=== PATIENT | female | born 1975 | race Hispanic/Latino ===

== ENCOUNTER 2018-05-23 18:11 | Inpatient (IN) | payer OTHER ==
[~2018-05-23] VITALS: Ht 152.4 cm; Wt 65.2 kg
[2018-05-23] MEDS ORDERED: LABETALOL HCL 5 MG/ML 20ML VIAL IV ONE (18:34)
[2018-05-23] MEDS ORDERED: ONDANSETRON HCL 4 MG/2 ML VIAL ONE (18:34)
[2018-05-23] MEDS ORDERED: SODIUM CHLORIDE 0.9% 500ML 500 ML IV ONE (18:34)
[2018-05-23] MEDS ORDERED: DICYCLOMINE HCL 10 MG/ML 2ML AMP IM ONE (18:34)
[2018-05-23 18:51] LABS: BASOPHILS % (AUTO) 0.7 % (0.0-5.0); EOSINOPHILS % (AUTO) 0.1 % (0.0-8.0); HEMATOCRIT 23.7 % (36-48); LYMPHOCYTES % (AUTO) 12.9 % (21.0-51.0); MEAN CORPUSCULAR HEMOGLOBIN 20.3 pg (27.0-33.0); MEAN CORPUSCULAR VOLUME 67.6 fL (79-99); MONOCYTES % (AUTO) 5.8 % (3.0-13.0); NEUTROPHILS % (AUTO) 80.5 % (40.0-77.0); NUCLEATED RED BLOOD CELLS 0.1 % (0.0-0.19); PLATELET COUNT (AUTO) 341 K/uL (130-400); RED BLOOD CELL COUNT(AUTO) 3.51 MIL/uL (4.00-5.50); RED CELL DISTRIBUTION WIDTH 23.3 % (11.0-15.5); WHITE BLOOD COUNT (AUTO) 8.9 K/uL (4.8-10.8)
[2018-05-23 19:03] LABS: CREATININE 2.7 mg/dL (0.5-1.5); POTASSIUM 3.2 mmol/L (3.5-5.1)
[2018-05-23 19:07] LABS: ALBUMIN 3.4 g/dL (3.5-5.0); BILIRUBIN,TOTAL 0.2 mg/dL (0.2-1.0); TOTAL PROTEIN, SERUM 7.5 g/dL (6.0-8.3)
[2018-05-23 19:19] LABS: INR 0.89 (0.85-1.15); PARTIAL THROMBOPLASTIN TIME 24.5 SEC (26.3-35.5); PROTHROMBIN TIME 9.4 SEC (9.6-11.6)
[2018-05-23 19:43] LABS: APPEARANCE,URINE Clear (CLEAR); BILIRUBIN,URINE Negative (NEGATIVE); COLOR,URINE Yellow (YELLOW); GLUCOSE, URINE (UA) Negative (NEGATIVE); KETONES,URINE Negative (NEGATIVE); LEUKOCYTE ESTERASE ,URINE Negative (NEGATIVE); NITRATE,URINE Negative (NEGATIVE); OCCULT BLOOD,URINE Moderate (NEGATIVE); PROTEIN,URINE 300 (NEGATIVE); UROBILINOGEN,URINE 0.2 mg/dL (0.2-1.0)
[2018-05-23 19:49] LABS: HCG,QUAL RESULT NEGATIVE (NEGATIVE)
[2018-05-23 20:00] LABS: RBC,URINE 0-1 /HPF (0-1)
[2018-05-23] MEDS ORDERED: HYDRALAZINE HCL 20 MG/ML VIAL ONE (20:00)
[2018-05-23 20:01] LABS: BACTERIA,URINE Few /HPF (None Seen); WBC,URINE 0-1 /HPF (0-1)
[2018-05-23 21:21] LABS: RETICULOCYTE % (AUTO) 2.95 % (0.42-2.23)
[2018-05-23 21:37] LABS: % IRON SATURATION 4.5 % (22-44); FERRITIN 47 ng/mL (15-150); IRON, SERUM 16 mcg/dL (50-170); TOTAL IRON BINDING CAPACITY 354 mcg/dL (250-450)
[2018-05-23] MEDS ORDERED: LACTATED RINGERS 1000ML 1,000 ML IV ONE (22:49)
[2018-05-23] MEDS ORDERED: CLONIDINE HCL 0.1 MG TABLET ONE (22:49)
[2018-05-23] MEDS ORDERED: FAMOTIDINE/PF 20 MG/2 ML VIAL IV ONE (22:54)
[2018-05-23 23:15] VITALS: BP 184/98
[2018-05-23] MEDS ORDERED: LACTATED RINGERS 1000ML 1,000 ML IV SCH (23:45)
[2018-05-23] MEDS ORDERED: ONDANSETRON HCL MDV 20ML 2 MG/ML VIAL IVP PRN (23:45)
[2018-05-24 00:33] VITALS: BP 134/71
[2018-05-24 04:12] VITALS: BP 145/88
[2018-05-24 04:53] LABS: BASOPHILS % (AUTO) 1.4 % (0.0-5.0); EOSINOPHILS % (AUTO) 2.2 % (0.0-8.0); LYMPHOCYTES % (AUTO) 27.5 % (21.0-51.0); MEAN CORPUSCULAR HEMOGLOBIN 20.3 pg (27.0-33.0); MEAN CORPUSCULAR HGB CONC 30.2 g/dL (32.0-36.0); MEAN CORPUSCULAR VOLUME 67.3 fL (79-99); MONOCYTES % (AUTO) 12.3 % (3.0-13.0); NEUTROPHILS % (AUTO) 56.6 % (40.0-77.0); PLATELET COUNT (AUTO) 327 K/uL (130-400); RED BLOOD CELL COUNT(AUTO) 2.98 MIL/uL (4.00-5.50); RED CELL DISTRIBUTION WIDTH 23.3 % (11.0-15.5); WHITE BLOOD COUNT (AUTO) 6.2 K/uL (4.8-10.8)
[2018-05-24 05:01] LABS: HEMATOCRIT 20.1 % (36-48)
[2018-05-24 05:16] LABS: ALBUMIN 2.7 g/dL (3.5-5.0); BILIRUBIN,TOTAL 0.3 mg/dL (0.2-1.0); CREATININE 2.4 mg/dL (0.5-1.5); POTASSIUM 3.4 mmol/L (3.5-5.1); TOTAL PROTEIN, SERUM 6.1 g/dL (6.0-8.3)
[2018-05-24] MEDS: SODIUM CHLORIDE 0.9% 1000ML 1,000 ML IV SCH ×5 (06:17→22:00)
[2018-05-24 07:30] VITALS: BP 181/93
[2018-05-24] MEDS ORDERED: SODIUM CHLORIDE 0.9% 250 ML IV ONE (08:15)
[2018-05-24] MEDS: FAMOTIDINE 20MG TAB 20 MG TAB PO SCH ×2 (08:25→21:44)
[2018-05-24] MEDS ORDERED: COMPOUND IV MISC 1 EACH IVSOLN MISC PRN (08:45)
[2018-05-24] MEDS: CLONIDINE HCL 0.1 MG TABLET PO PRN ×2 (09:00→16:16)
[2018-05-24] MEDS: IRON SUCROSE COMPLEX 100 MG in SODIUM CHLORIDE 0.9% 50 ML IV SCH (09:00)
[2018-05-24 10:20] LABS: PROTEIN,URINE RANDOM 204.4 mg/dL (0-11.9)
[2018-05-24 11:00] VITALS: BP 156/85
[2018-05-24 13:14] LABS: HEMATOCRIT 24.7 % (36-48)
[2018-05-24 16:00] VITALS: BP 194/107
[2018-05-24] MEDS ORDERED: LACTULOSE 20 GM/30 ML UDCUP PO SCH (17:15)
[2018-05-24] MEDS ORDERED: LACTULOSE 20 GM/30 ML UDCUP ONE (17:24)
[2018-05-24] MEDS ORDERED: PEG 3350/NA SULF,BICARB,CL/KCL 4000 ML SOLN PO SCH (18:00)
[2018-05-24] MEDS: METOCLOPRAMIDE 10 MG/2 ML VIAL IVP SCH (18:16)
[2018-05-24 20:00] VITALS: BP 177/103
[2018-05-24] MEDS: VERAPAMIL HCL 240 MG SRTAB PO SCH (22:00)
[2018-05-24 22:01] LABS: HEMATOCRIT 28.2 % (36-48)
[2018-05-25] VITALS (22 sets, daily range): BP systolic 131–213; BP diastolic 60–108
[2018-05-25] MEDS: SODIUM CHLORIDE 0.9% 1000ML 1,000 ML IV SCH ×3 (01:16→11:19)
[2018-05-25] MEDS: CLONIDINE HCL 0.1 MG TABLET PO PRN ×2 (04:42→08:00)
[2018-05-25 05:05] LABS: HEMATOCRIT 24.6 % (36-48); MEAN CORPUSCULAR HEMOGLOBIN 21.3 pg (27.0-33.0); MEAN CORPUSCULAR VOLUME 70.9 fL (79-99); NUCLEATED RED BLOOD CELLS 0.1 % (0.0-0.19); PLATELET COUNT (AUTO) 279 K/uL (130-400); RED BLOOD CELL COUNT(AUTO) 3.47 MIL/uL (4.00-5.50); RED CELL DISTRIBUTION WIDTH 23.4 % (11.0-15.5)
[2018-05-25 05:18] LABS: CREATININE 1.9 mg/dL (0.5-1.5); HEMOGLOBIN A1C 6.2 % (4.0-6.0); PHOSPHORUS 3.5 mg/dL (2.5-4.9); POTASSIUM 3.4 mmol/L (3.5-5.1)
[2018-05-25 05:21] LABS: EOSINOPHILS % (MANUAL) 6 % (1-6); LYMPHOCYTES % (MANUAL) 30 % (22-44); MAN.DIFF COMMENT-IMPRESSION MANUAL DIFFERENTIAL; MONOCYTES % (MANUAL) 6 % (2-9); PLATELET MORPHOLOGY COMMENT ADEQUATE; SEGMENTED NEUTROPHILS % 58 % (40-70)
[2018-05-25] MEDS: METOCLOPRAMIDE 10 MG/2 ML VIAL IVP SCH ×4 (05:48→18:00)
[2018-05-25] MEDS ORDERED: NIFEDIPINE ER 30 MG TAB PO SCH (08:15)
[2018-05-25] MEDS: HYDRALAZINE HCL 20 MG/ML VIAL IV PRN (08:37)
[2018-05-25] MEDS: IRON SUCROSE COMPLEX 100 MG in SODIUM CHLORIDE 0.9% 50 ML IV SCH (08:38)
[2018-05-25] MEDS: VERAPAMIL HCL 240 MG SRTAB PO SCH (08:46)
[2018-05-25] MEDS: FAMOTIDINE 20MG TAB 20 MG TAB PO SCH ×2 (08:47→20:25)
[2018-05-25] MEDS ORDERED: LABETALOL 20 MG/4 ML DISP.SYRIN IV PRN (13:00)
[2018-05-25] MEDS: NICARDIPINE HCL 100 MG in SODIUM CHLORIDE 0.9% 60 ML IV SCH ×2 (14:39→20:59)
[2018-05-25] MEDS: NIFEDIPINE ER 30 MG TAB PO SCH (20:54)
[2018-05-26] VITALS (30 sets, daily range): BP systolic 127–171; BP diastolic 60–92
[2018-05-26] MEDS: SODIUM CHLORIDE 0.9% 1000ML 1,000 ML IV SCH ×3 (01:03→17:19)
[2018-05-26] MEDS: HYDRALAZINE HCL 20 MG/ML VIAL IV PRN ×2 (09:00→19:28)
[2018-05-26] MEDS: NIFEDIPINE ER 30 MG TAB PO SCH ×2 (09:00→19:27)
[2018-05-26] MEDS: FAMOTIDINE 20MG TAB 20 MG TAB PO SCH ×2 (09:00→20:41)
[2018-05-26] MEDS: IRON SUCROSE COMPLEX 100 MG in SODIUM CHLORIDE 0.9% 50 ML IV SCH (10:53)
[2018-05-26] MEDS ORDERED: PROPOFOL 10 MG/ML 20ML VIAL IV ONE (13:54)
[2018-05-26] MEDS ORDERED: LIDOCAINE HCL-MPF 2% 5ML VIAL ONE (13:54)
[2018-05-26] MEDS ORDERED: FENTANYL CITRATE PF 50 MCG/1 ML 2ML VIAL ONE (13:54)
[2018-05-26 15:44] LABS: ABG BASE EXCESS -4.8 mmol/L (-2.0-3.0); ABG HCO3 17.7 mmol/L (21.0-28.0); ABG OXYGEN SATURATION 91.7 % (95.0-99.0); ABG PCO2 27 mmHg (32-45)
[2018-05-26 15:58] LABS: ABG BASE EXCESS -4.9 mmol/L (-2.0-3.0); ABG HCO3 17.7 mmol/L (21.0-28.0); ABG OXYGEN SATURATION 87.3 % (95.0-99.0); ABG PCO2 27 mmHg (32-45)
[2018-05-26] MEDS ORDERED: EPOETIN ALFA 10,000 UNIT/ML VIAL SQ SCH (16:30)
[2018-05-26] MEDS: CLONIDINE HCL 0.1 MG TABLET PO SCH ×2 (17:27)
[2018-05-26] MEDS: HYDROCORTISONE 25 MG SUPPOSITORY PR SCH (20:29)
[2018-05-26] MEDS: PANTOPRAZOLE SODIUM 40 MG TABLET.DR PO SCH (20:30)
[2018-05-27 00:06] VITALS: BP 159/86
[2018-05-27 00:59] VITALS: BP 154/76
[2018-05-27 01:59] VITALS: BP 141/73
[2018-05-27 02:59] VITALS: BP 147/76
[2018-05-27] MEDS: SODIUM CHLORIDE 0.9% 1000ML 1,000 ML IV SCH (03:53)
[2018-05-27 03:59] VITALS: BP 159/96
[2018-05-27 04:03] LABS: ABG BASE EXCESS -5.1 mmol/L (-2.0-3.0); ABG HCO3 18.6 mmol/L (21.0-28.0); ABG OXYGEN SATURATION 94.8 % (95.0-99.0); ABG PCO2 29 mmHg (32-45)
[2018-05-27 04:22] LABS: HEMATOCRIT 25.4 % (36-48); MEAN CORPUSCULAR HEMOGLOBIN 21.2 pg (27.0-33.0); MEAN CORPUSCULAR VOLUME 70.8 fL (79-99); NUCLEATED RED BLOOD CELLS 0.1 % (0.0-0.19); PLATELET COUNT (AUTO) 335 K/uL (130-400); RED BLOOD CELL COUNT(AUTO) 3.59 MIL/uL (4.00-5.50); RED CELL DISTRIBUTION WIDTH 24.9 % (11.0-15.5); WHITE BLOOD COUNT (AUTO) 7.2 K/uL (4.8-10.8)
[2018-05-27 04:32] LABS: ALBUMIN 2.7 g/dL (3.5-5.0); BILIRUBIN,TOTAL 0.4 mg/dL (0.2-1.0); CREATININE 1.9 mg/dL (0.5-1.5); POTASSIUM 3.3 mmol/L (3.5-5.1); TOTAL PROTEIN, SERUM 6.2 g/dL (6.0-8.3)
[2018-05-27 05:00] LABS: B-TYPE NATRIURETIC PEPTIDE 775 pg/mL (0-100)
[2018-05-27 05:02] LABS: BAND NEUTROPHILS % (MANUAL) 3 % (0-2); BASOPHILS % (MANUAL) 2 % (0-2); EOSINOPHILS % (MANUAL) 3 % (1-6); LYMPHOCYTES % (MANUAL) 11 % (22-44); MONOCYTES % (MANUAL) 5 % (2-9); SEGMENTED NEUTROPHILS % 76 % (40-70)
[2018-05-27 05:03] LABS: MAN.DIFF COMMENT-IMPRESSION MANUAL DIFFERENTIAL
[2018-05-27 05:55] VITALS: BP 149/72
[2018-05-27] MEDS: CLONIDINE HCL 0.1 MG TABLET PO SCH (05:55)
[2018-05-27] MEDS: HYDRALAZINE HCL 20 MG/ML VIAL IV PRN (07:42)
[2018-05-27] MEDS ORDERED: FUROSEMIDE 10 MG/ML 4ML VIAL IV SCH (08:30)
[2018-05-27] MEDS ORDERED: LIDOCAINE HCL-MPF 1% 2ML VIAL IVP PRN (08:45)
[2018-05-27] MEDS ORDERED: POTASSIUM CHLORIDE 20MEQ/100ML 100 ML IV PRN (08:45)
[2018-05-27] MEDS ORDERED: POTASSIUM CHLORIDE 20 MEQ ERTAB PO PRN (08:45)
[2018-05-27] MEDS ORDERED: POTASSIUM CHLORIDE 10% ELIXIR 20 MEQ/15 ML UDCUP PO PRN (08:45)
[2018-05-27] MEDS ORDERED: ENOXAPARIN SODIUM 60 MG/0.6 ML SQ SCH (09:00)
[2018-05-27] MEDS: NIFEDIPINE ER 30 MG TAB PO SCH (10:01)
[2018-05-27] MEDS: FAMOTIDINE 20MG TAB 20 MG TAB PO SCH (10:02)
[2018-05-27] MEDS: PANTOPRAZOLE SODIUM 40 MG TABLET.DR PO SCH (10:03)
[2018-05-27] MEDS: HYDROCORTISONE 25 MG SUPPOSITORY PR SCH (10:10)
[2018-05-27] MEDS ORDERED: LORAZEPAM 2 MG/ML 1 ML VIAL IVP SCH (13:00)
[2018-05-27] MEDS ORDERED: LORAZEPAM 2 MG/ML 1 ML VIAL ONE (13:02)
[2018-05-27] MEDS ORDERED: ALTEPLASE 100 MG VIAL IV SCH (13:24)
[2018-05-27] MEDS ORDERED: ALTEPLASE 50 MG VIAL IV SCH (13:25)
[2018-05-27] MEDS ORDERED: CLONIDINE HCL 0.2 MG TABLET PO SCH (14:00)
== END 2018-05-27 13:38 | disposition short-term general hospital (02) | DRG 683 ==
LOC: EDH 18:11 → EDHIP 18:12 → 3CH 22:45 → 2BH 05-25 12:25
PROVIDERS: ADMIT Hospitalist; ATTEND Hospitalist
PROC: 30233N1 Transfusion of Nonautologous Red Blood Cells into Peripheral Vein, Percutaneous Approach (ICD-10-PCS; principal; 2018-05-24)
PROC: 0DJD8ZZ Inspection of Lower Intestinal Tract, Via Natural or Artificial Opening Endoscopic (ICD-10-PCS; 2018-05-26)
PROC: 0DB98ZX Excision of Duodenum, Via Natural or Artificial Opening Endoscopic, Diagnostic (ICD-10-PCS; 2018-05-26)
PROC: 0DB68ZX Excision of Stomach, Via Natural or Artificial Opening Endoscopic, Diagnostic (ICD-10-PCS; 2018-05-26)
DX: N17.9 Acute kidney failure, unspecified (principal); I31.3 Pericardial effusion (noninflammatory); G81.04 Flaccid hemiplegia affecting left nondominant side; R41.4 Neurologic neglect syndrome; E44.0 Moderate protein-calorie malnutrition; I13.10 Hypertensive heart and chronic kidney disease without heart failure, with stage 1 through stage 4 chronic kidney disease, or unspecified chronic kidney disease; K29.60 Other gastritis without bleeding; K29.80 Duodenitis without bleeding; D25.9 Leiomyoma of uterus, unspecified; D50.9 Iron deficiency anemia, unspecified; D63.8 Anemia in other chronic diseases classified elsewhere; E87.6 Hypokalemia; E87.70 Fluid overload, unspecified; K64.8 Other hemorrhoids; E86.0 Dehydration; K27.9 Peptic ulcer, site unspecified, unspecified as acute or chronic, without hemorrhage or perforation; K21.9 Gastro-esophageal reflux disease without esophagitis; N18.9 Chronic kidney disease, unspecified; R09.02 Hypoxemia; Z86.73 Personal history of transient ischemic attack (TIA), and cerebral infarction without residual deficits; Z68.28 Body mass index [BMI] 28.0-28.9, adult; Z79.899 Other long term (current) drug therapy
CPT/HCPCS: 36415; 36430; 36600; 43239; 45378; 70450; 70551; 71045; 74176; 76705; 78580; 80048; 80053; 81001; 81025; 82270; 82435; 82550; 82570; 82728; 82803; 82947; 82948; 83036; 83605; 83690; 83880; 84100; 84132; 84156; 84295; 84484; 85014; 85018; 85025; 85610; 85730; 86160; 86255; 86334; 86677; 86850; 86900; 86901; 86922; 88305; 93005; A9540; J0360; J0500; J0885; J1650; J1756; J1940; J2060; J2405; J2704; J2765; J2997; J3010; J3490; J7030; J7040; J7120; P9016